=== PATIENT | female | born 1970 | race Caucasian/White ===

== ENCOUNTER → 2017-05-16 | Outpatient (CLI) | payer OTHER ==
[~2017-05-16] MED LIST: LINZESS145CAP; MOTRIN 600600 MG/TAB PO; VENTOLIN0.09 MG IH; XANAX 0.5MG0.5 MG PO
== END ==
LOC: MC.RAD 13:58
DX: N60.01 Solitary cyst of right breast (principal); N60.02 Solitary cyst of left breast

== ENCOUNTER → 2018-07-31 | Outpatient (CLI) | payer BC | LOC: COL.RAD 08:09 | DX: N89.8 Other specified noninflammatory disorders of vagina (principal) | CPT/HCPCS: Q9967 ==

== ENCOUNTER → 2018-09-15 | Outpatient (CLI) | payer BC | LOC: MC.RAD 11:21 | DX: Z12.31 Encounter for screening mammogram for malignant neoplasm of breast (principal); N63.20 Unspecified lump in the left breast, unspecified quadrant ==

== ENCOUNTER → 2018-12-11 | Outpatient (CLI) | payer BC ==
[~2018-12-11] MED LIST changes: +B-12 500 MCG; +ESTRACE0.5 MG PO; +MULTI VITAMINS1 TAB PO; +PROBIOTIC FORMU1 CAP PO; +VITAMIN D31000 I1 PO
== END ==
LOC: COL.RAD 12:09
DX: E04.1 Nontoxic single thyroid nodule (principal); R13.10 Dysphagia, unspecified

== ENCOUNTER → 2018-12-12 | Outpatient (CLI) | payer BC ==
[~2018-12-12] VITALS: Ht 162.6 cm; Wt 54.0 kg
[2018-12-12 13:14] VITALS: BP 142/79; PULSE 79
[2018-12-12 13:50] VITALS: BP 152/89; PULSE 77
--- NOTE | 2018-12-12 14:23 | NUR ---
Pts ride here pt down to car per ambulation. Denies complaints at this time. Just stiffness to neck.
== END ==
LOC: COL.RAD 12:45
DX: E04.1 Nontoxic single thyroid nodule (principal)

== ENCOUNTER → 2018-12-29 | Outpatient (CLI) | payer BC | LOC: COL.LAB 13:03 | DX: E04.1 Nontoxic single thyroid nodule (principal) ==

== ENCOUNTER → 2019-09-21 | Outpatient (CLI) | payer BC | LOC: MC.RAD 13:08 | DX: Z12.31 Encounter for screening mammogram for malignant neoplasm of breast (principal) ==